=== PATIENT | female | born 2000 | race Caucasian/White ===

== ENCOUNTER 2020-02-27 14:48 | Outpatient (CLI) | payer OTHER ==
--- NOTE | 2020-02-27 15:08 | ULT ---
US Breast Limited Rt: 02/27/2020 12:00 AM CLINICAL INDICATION: Palpable breast mass in the upper outer right breast. COMPARISON: None. TECHNIQUE: Multiplanar grayscale and color Doppler images were obtained of the breast. FINDINGS: Normal appearing parenchyma is seen. No suspicious mass is seen. No suspicious shadowing is seen. No cyst is identified. IMPRESSION: BI-RADS Category 1-negative.
== END 2020-02-27 14:49 | disposition home or self-care (01) ==
LOC: BICULT 14:48
PROVIDERS: ATTEND Student in an Organized Health Care Education/Training Program
DX: N63.11 Unspecified lump in the right breast, upper outer quadrant (principal)